=== PATIENT | male | born 1980 | race Two or more races ===

== ENCOUNTER 2024-09-28 09:54 | Emergency (ER) | payer MEDICAID, OTHER, SELFPAY ==
--- NOTE | ~2024-09-28 | XR_ITS ---
EXAMINATION: XR CHEST CLINICAL INFORMATION: cough COMPARISON: None available. TECHNIQUE: 2 views of the chest were obtained. FINDINGS: The cardiac, hilar, and mediastinal contours are normal. The lungs are clear bilaterally. There is no pneumothorax or pleural effusion. There is no focal osseous or soft tissue abnormality. XR/XR chest 2V IMPRESSION: No active pulmonary disease. Electronically signed by: Frandy Fleming MD 09/28/2024 12:13 PM [facility]
[2024-09-28 10:53] VITALS: BP 128/92; PULSE 94; RESP 16; TEMP 36.4; O2SAT 98; BMI 29.7
[2024-09-28 11:51] LABS: Influenza A PCR POSITIVE (Negative); Influenza B PCR NEGATIVE (Negative); Resp Syncy Virus RNA Qual PCR NEGATIVE (Negative); SARS COV2 PCR INHOUSE NEGATIVE (Negative)
--- NOTE | 2024-09-28 15:08 | ED_ITS ---
HPI - General Adult General Chief complaint: Upper Respiratory Symptoms Stated complaint: wheezing cough Time Seen by Provider: 09/28/24 15:06 Source: patient and aerial photograph interpreter (all interactions with this patient were facilitated with an [facility] [place] aerial photograph interpreter[place] Mode of arrival: ambulatory Limitations: language barrier (all interactions with this patient were facilitated with an [facility] [place] aerial photograph interpreter[place] History of Present Illness ED Provider: Deidre Encinas PA-C HPI narrative: Patient is a 44 year old assigned male at with a medical history of asthma presenting to the emergency department today with a cough and shortness of breath. Patient states that over the last 5 days he has had a cough and intermittent shortness of breath. Patient denies any dizziness, lightheadedness, abdominal pain, nausea, vomiting, fever, chills, blurry vision, double vision, loss of vision, chest pain, back pain, night sweats, pain with urination, increased urinary frequency, increased urinary urgency, blood in his urine or stool, syncope or a near syncopal episode, recent trauma or falls, bowel incontinence, bladder incontinence, or any other complaints at this time. Onset (ago): day(s) (5) Relieving factors: none Exacerbating factors: none Associated symptoms: cough and shortness of breath Treatments prior to arrival: none Related Data Previous Rx's ?Medication ?Instructions ?Recorded benzonatate 100 mg capsule 100 mg PO BID PRN cough 7 days #14 09/28/24 caps prednisone 20 mg tablet See Rx Instructions .Route 09/28/24 .COMPLEX 12 days #26 tabs Allergies Allergy/AdvReac Type Severity Reaction Status Date / Time No Known Allergies Allergy Verified 09/28/24 10:53 Review of Systems Constitutional: Constitutional: Reports no additional constitutional complaints, Denies chills, Denies fever(s) and Denies night sweats Eyes: Eyes: Reports no additional eye complaints, Denies blurry vision, Denies change in vision, Denies diplopia, Denies eye discharge, Denies loss of vision and Denies eye pain ENT: Denies dizziness Cardiovascular: Cardiovascular: Reports no additional cardiovascular complaints, Denies chest pain, Denies lightheadedness, Denies Loss of Consciousness and Reports dyspnea Respiratory: Respiratory: Reports no additional respiratory complaints, Reports cough and Reports dyspnea Gastrointestinal: Gastrointestinal: Reports no additional gastrointestinal complaints, Denies abdominal pain, Denies melena, Denies hematochezia, Denies change in bowel habits and Denies change in stool character Genitourinary: Genitourinary: Reports no additional male genitourinary complaints, Denies hematuria, Denies oliguria, Denies difficulty urinating, Denies dysuria, Denies urinary frequency, Denies urinary hesitancy, Denies urinary incontinence and Denies urinary urgency Musculoskeletal: Musculoskeletal: Reports no additional musculoskeletal complaints, Denies numbness and Denies tingling Neurologic: Denies dizziness, Denies loss of vision, Denies numbness and Denies tingling Psychiatric: Psychiatric: Reports no additional psychiatric complaints Endocrine: Endocrine: Reports no additional endocrine complaints Hematologic/Lymphatic: Hematologic/Lymphatic: Reports no additional hematologic/lymphatic complaints Allergic/Immunologic: Allergic/Immunologic: Reports no additional allergic/immunologic complaints PMFSH Past Medical History Attestation statement: The following information was validated with the patient. Source: old records reviewed and nursing notes reviewed Social History Social History Advance Directives: No Advance Directives Information Provided: No Do you have a plan to hurt others: No Plan Physical Exam ED Vital Signs: Vital Signs - 24 hr 09/28/24 10:53 Temperature 97.6 F Pulse Rate 94 Respiratory Rate 16 Blood Pressure 128/92 H Pulse Oximetry 98 Oxygen Delivery Method Room Air BMI result Body Mass Index 29.7 Const General: cooperative, no acute distress, alert and awake Nutritional Appearance: well nourished Orientation/consciousness: patient oriented x3 Limitations: no limitations [facility] Head: Yes normal to inspection and Yes atraumatic Ears: hearing grossly normal bilaterally and external ears normal General nose exam: Normal external nose present, no nasal discharge noted and no epistaxis Face and sinus: Yes normal facial exam, No abrasion and No laceration Mouth: Normal oral and palatal mucosa present, no drooling and no muffled voice Eyes General: appearance normal, both eyes and all related structures Periorbital: periorbital findings normal Eyelids: Yes eyelids normal Conjunctivae: conjunctivae normal Pupils: Equal, round and reactive pupils present EOM: EOMs intact bilaterally Neck Neck: Yes normal visual inspection, Yes full ROM and Yes no lymphadenopathy Chest Chest palpation & inspection: normal inspection of the chest Resp Effort & Inspection: normal respiratory effort and able to speak in complete sentences GI Inspection: Yes normal to inspection Neuro General: patient oriented x3 and moves all extremities Cranial nerves: Yes Equal, round and reactive pupils present Cognition (Neuro): normal cognition Extrem General: Yes normal to inspection, Yes full ROM and Yes capillary refill normal Psych Appearance: grossly normal Mental Status: mental status grossly normal Affect: normal affect Attitude: cooperative Thought process: Normal thought process present Thought content: Normal thought content present Insight: Good insight present (Psych) Medical Decision Making Medical Decision Making [facility] Narrative: Patient is a 44 year old assigned male at with a history of asthma presenting to the emergency department today with a cough and shortness of breath. Patient's physical exam was unremarkable. Patient was non-toxic appearing. Patient's chest x-ray showed no acute process. Patient's influenza t est was positive. I explained my physical exam findings as well as all test results to the patient. I answered all questions asked by the patient. I stressed the importance of the patient taking his medication as directed (either prescribed or as the over the counter packaging recommends). I stressed the importance of the patient following up with his primary care provider. I stressed the importance of the patient returning to the emergency department immediately if his symptoms were to worsen or if he were to develop any dizziness, shortness of breath, difficulty breathing, chest pain, blurry vision, loss of vision, nausea, vomiting, abdominal pain, fever, chills, back pain, or any other complaints. Patient verbalized agreement and understanding with this treatment plan and discharge. Differential Diagnosis Differential Diagnoses: The differential diagnosis associated with the presentation includes COVID-19 Influenza RSV Viral illness Cough Admission/Observation Consideration of admission/observation: Escalation of care including admission/observation considered Patient would have been admitted to the hospital had his work up had any findings where hospital admission was appropriate and his clinical presentation warranted hospital admission. Lab Data [facility] Lab Attestation statement: I reviewed the patient's lab results. My interpretation of these results are in the [facility] Rationale portion of this note. Labs: Lab Results 09/28/24 Range/Units 11:06 Influenza Type A (PCR) POSITIVE A (Negative) Influenza Type B (PCR) NEGATIVE (Negative) RSV RNA Qual (PCR) NEGATIVE (Negative) SARS-CoV-2 RNA (RT-PCR) NEGATIVE (Negative) Independent Interpretation I performed an independent interpretation of an: Plain X-Ray Interpretation: My interpretation is in agreement with the radiologist's impression of this imaging study. EXAMINATION: XR CHEST CLINICAL INFORMATION: cough COMPARISON: None available. TECHNIQUE: 2 views of the chest were obtained. FINDINGS: The cardiac, hilar, and mediastinal contours are normal. The lungs are clear bilaterally. There is no pneumothorax or pleural effusion. There is no focal osseous or soft tissue abnormality. XR/XR chest 2V IMPRESSION: No active pulmonary disease. Electronically signed by: Frandy Fleming MD 09/28/2024 12:13 PM [facility] Dictated By: Frandy Fleming MD Signed By: Electronically signed by Frandy Fleming MD 09/28/24 1213 Radiology Impression Discussion of test interpretation with radiology: I have reviewed the radiologist's reading. Discharge Plan Discharge Clinical Impression: Influenza Patient Disposition: Home, Self-Care Instructions: Influenza (DC) Additional Instructions: Follow up with your primary care provider. Return to the emergency department immediately if your symptoms worsen or if you develop any dizziness, shortness of breath, difficulty breathing, chest pain, blurry vision, loss of vision, nausea, vomiting, abdominal pain, fever, chills, back pain, or any other complaints. Prescriptions: New benzonatate 100 mg capsule 100 mg PO BID PRN (Reason: cough) 7 Days Qty: 14 0RF prednisone 20 mg tablet See Rx Instructions .ROUTE .COMPLEX 12 Days Qty: 26 0RF Rx Instructions: 20 mg orally, Take 3 tablets for 5 days THEN; Take 2 tablets for 4 days THEN; Take 1 tablet for 3 days Referrals[place] [facility] [place] [Provider Group] (Call to establish and follow up with a primary care provider. If you already have a primary care provider, please follow up with them.) [facility] [Provider Group] (Call to establish and follow up with a primary care provider. If you already have a primary care provider, please follow up with them.) [facility] [place] [facility] [Provider Group] (Call to establish and follow up with a primary care provider. If you already have a primary care provider, please f ollow up with them.) [facility] [place] [facility] Talon Littlejohn [Provider Group] (Call to establish and follow up with a primary care provider. If you already have a primary care provider, please follow up with them.) Discharge Date/Time: 09/28/24 15:23 Print Language: Serbian
--- NOTE | 2024-09-28 15:23 | PC.NURSE ---
discharged by provider
--- OUTSIDE RECORDS SUMMARY | 2024-09-28 19:22 | XMS_ITS | Encounter Summary ---
Author Organization [facility] Address [address] [place] [address] Care Team Providers Care Hydrometallurgical Engineer Name Role Phone Valentín Russo Unavailable [phone] Encounter Details Date Type Department Care Team (Late Contact Info) Description 08/03/2024 Telephone [facility] [address] [place] [address] Tala Richmond Social History Tobacco Use Types Packs/Day Years Used Date Smoking Tobacco: Some Days Cigarettes Passive Smoke Exposure: Current Smokeless Tobacco: Never Alcohol Use Standard Drinks/Week Comments Defer 0 (1 standard drink = 0.6 oz pur e alcohol) Sex and Gender Information Value Date Recorded Sex Assigned at Male 07/23/2024 10:26 AM EST Legal Sex Male 10:24 AM EST Gender Identity Male 07/23/2024 10:26 AM EST Sexual Orientation Choose not to disclose 2023 10:26 AM EST documented as of this encounter Plan of Treatment Upcoming Encounters Date Type Department Care Team (Late st Contact Info) Description 10/07/2024 3:00 PM EST Office Visit [facility] [address] [place] [address] Valentín Russo [address] [place] [address] documented as of this encounter Visit Diagnoses Not on filedocumented in this encounter Care Teams Hydrometallurgical Engineer Relationship Specialty Start Date End Date Valentín Russo [address] [place] [address] Resident Dental Donor Relations Manager 08/03/24 documented as of this encounter
--- OUTSIDE RECORDS SUMMARY | 2024-09-28 19:22 | XMS_ITS | Clinical Summary ---
Author Organization [employer] Address [address] [place] [address] Care Team Providers Care Refractory Worker Name Role Phone Karan Valentín Unavailable [phone] Allergies No known active allergies Medications No known medications Encounters Date Type Department Care Team Description 09/01/2024 10:30 AM EST Office Visit [facility] [address] [place] [address] Valentín Russo 08/14/2024 8:00 AM EST Office Visit [facility] [address] [place] [address] Urbano Salas Dental calculus (Primary Dx) 08/03/2024 Telephone [facility] [address] [place] [address] Tala Richmond 08/03/2024 Telephone [facility] [address] [place] [address] Tala Richmond 07/29/2024 8:00 AM EST Office Visit [facility] [address] [place] [address] Valentín Russo 07/23/2024 2:00 PM EST Office Visit [facility] [address] [place] [address] Tala Richmond Dental calculus (Primary Dx) from Last 3 Months Social History Tobacco Use Types Packs/Day Years Used Date Smoking Tobacco: Never Passive Smoke Exposure: Current Smokeless Tobacco: Never Tobacco Cessation:Counseling Given: Not Answered Alcohol Use Standard Drinks/Week Comments Not Asked 0 (1 standard drink = 0.6 oz pur e alcohol) Sex and Gender Information Value Date Recorded Sex Assigned at Male 07/23/2024 10:26 AM EST Legal Sex Male 10:24 AM EST Gender Identity Male 07/23/2024 10:26 AM EST Sexual Orientation Choose not to disclose 2023 10:26 AM EST Last Filed Vital Signs Vital Sign Reading Time Taken Comments Blood Pressure 130/70 08/14/2024 8:17 AM EST Pulse 70 08/14/2024 8:17 AM EST Temperature - - Respiratory Rate - - Oxygen Saturation - - Inhaled Oxygen Concentration - - Weight - - Height - - Body Mass Index - - Plan of Treatment Upcoming Encounters Date Type Department Care Team ([facility] st Contact Info) Description 10/07/2024 3:00 PM EST Office Visit [facility] [address] [place] [address] Valentín Russo [address] [place] [address] Health Maintenance Due Date Last Done Comments CT Colonography 1979 Colonoscopy 1979 Colorectal Cancer Screening 1979 Depression Screening 1979 FIT DNA/Cologuard 1979 FIT 1979 FOBT 1979 HIV Screening 1979 Lipid Panel 1979 SDOH Screening 1979 Sigmoidoscopy 1979 Alcohol/Substance Use Screening 1991 Family Planning (PISQ) 1994 Hepatitis C Screening 1997 DTaP/Tdap/Td Vaccines (1 - Tdap) 1998 Hepatitis B Vaccines (1 of 3 - 19+ 3-dose series) 1998 COVID-19 Vaccine ( - 2023-2 5 season) 2024 Influenza Vaccine (#1) 2024 Dental Prophylaxis 02/13/2025 08/14/2024 Dental Oral Exam 03/02/2025 09/01/2024 Dental X-Ray: Bitewings 08/15/2025 08/14/2024 Tobacco Screening 09/01/2025 09/01/2024 Dental X-Ray: Full Mouth 08/15/2027 08/14/2024 Zoster Vaccines (1 of 2) 2029 RSV Patients and Pa tients Aged 60 years or older (1 - 1-dose 75+ series) 2054 HIB Vaccines Aged Out No longer eligi ble based on patient's age to complete this topic HPV Vaccines Aged Out No longer eligi ble based on patient's age to complete this topic Hepatitis A Vaccines Aged Out No long er eligible based on patient's age to complete this topic IPV Vaccines Aged Out No longer eligi ble based on patient's age to complete this topic Meningococcal Vaccine Aged Out No brandon aj eligible based on patient's age to complete this topic Pneumococcal Vaccine: Pediat rics (0 to 5 Years) and At-Risk Patients (6 to 64 Years) Aged Out No longer eligi ble based on patient's age to complete this topic RSV under 20 months Aged Out No longe r eligible based on patient's age to complete this topic Rotavirus Vaccines Aged Out No longer eligible based on patient's age to complete this topic Procedures Procedure Name Priority Date/Time Associated Diagnosis Comments COMPREHENSIVE ORAL EVALUATION - NEW OR ESTABLISHED PATIENT Routine 09/01/2024 10:30 AM EST ADJUNCTIVE GENERAL SERVICES - PROFESSIONAL VISITS - CASE PRESENTATION, SUBSEQUENT TO DETAILED AND EXTENSIVE TREATMENT PLANNING Routine 08/14/2024 8:00 AM EST ORAL HYGIENE INSTRUCTIONS Routine 2023 8:00 AM EST DIAGNOSTIC - DIAGNOSTIC IMAGING - INTRAORAL - COMPREHENSIVE SERIES OF RADIOGRAPHIC IMAGES Routine 08/14/2024 8:00 AM EST PROPHYLAXIS - ADULT Routine 08/14/2024 8 :00 AM EST 26 EXTRACTION, ERUPTED TOOTH OR EXPOSED ROOT (ELEVATION AND/OR FORCEPS REMOVAL) Routine 07/29/2024 8:00 AM EST 24 EXTRACTION, ERUPTED TOOTH OR EXPOSED ROOT (ELEVATION AND/OR FORCEPS REMOVAL) Routine 07/29/2024 8:00 AM EST 23 EXTRACTION, ERUPTED TOOTH OR EXPOSED ROOT (ELEVATION AND/OR FORCEPS REMOVAL) Routine 07/29/2024 8:00 AM EST DIAGNOSTIC - TESTS AND EXAMINATIONS - CARIES RISK ASSESSMENT AND DOCUMENTATION, WITH A FINDING OF HIGH RISK Routine 07/23/2024 2:00 PM EST 23,24,25,26 LIMITED ORAL EVALUATION - PROBLEM FOCUSED Routine 07/23/2024 2:00 PM EST ADJUNCTIVE GENERAL SERVICES - PROFESSIONAL VISITS - CASE PRESENTATION, SUBSEQUENT TO DETAILED AND EXTENSIVE TREATMENT PLANNING Routine 07/23/2024 2:00 PM EST INTRAORAL - PERIAPICAL EACH ADDITIONAL RADIOGRAPHIC IMAGE Routine 07/23/2024 2:00 PM EST INTRAORAL - PERIAPICAL EACH ADDITIONAL RADIOGRAPHIC IMAGE Routine 07/23/2024 2:00 PM EST INTRAORAL - PERIAPICAL FIRST RADIOGRAPHIC IMAGE Routine 07/23/2024 2:00 PM EST from Last 3 Months [facility] ADULT [facility]ENT[facility] - HSN FULL (MEDICAID) Care Teams Refractory Worker Relationship Specialty Start Date End Date Valentín Russo [address] [place] [address] [place] RUIZ [phone] Resident Dental Real Estate Leasing Manager 08/03/24
--- OUTSIDE RECORDS SUMMARY | 2024-09-28 19:22 | XMS_ITS | Encounter Summary ---
Author Organization [employer] Address [address] [place] [address] Care Team Providers Care Business Management Manager Name Role Phone Valentín Russo Unavailable [phone] Reason for Visit * Reason Comments Dental Exam Encounter Details Date Type Department Care Team ([facility] st Contact Info) Description 09/01/2024 10:30 AM EST Office Visit [facility] [address] [place] [address] Valenítn Russo [address] [place] [address] Social History Tobacco Use Types Packs/Day Years [...] AM EST documented as of this encounter Progress Notes * Valentín Russo - 09/01/2024 10:30 AM EST Dental procedures in this visit [id number] - COMPREHENSIVE ORAL EVALUATION - NEW OR ESTABLISHED PATIENT (Completed) Service provider: Valentín Russo Billing provider: Chris Martinez DMD Patient ID: Alysa Ibrahim is a 44 y.o. male. Time Out: Date: 09/01/2024 Location: [facility] Tooth: Maxilla and Mandible Procedure: Exam Verified the above with patient, accounting administrative assistant, and provider. Confirmed via patient's chart, intraorally and by radiographs. Fishing Captain: not applicable 44 y.o. year old male patient presents to clinic for a Comprehensive exam completed by Dr. Ruiz CONSENT FORM INITIALED & SIGNED BY THE PATIENT AND COUNTERSIGNED BY Dr. Valentín Russo Chief Complaint: I'm here for my exam [place] PASS: Pain: no Duration: N/A Scale of pain from 1 - 10: N/A Aggravating factors: N/A Pain radiating: N/A Postural variation: N/A Medical history: Reviewed in EHR, pt. reports no changes in medical history Medical consult/Medical clearance: No Vital signs: BP - 125/84 Allergies: reviewed in EHR, NKDA Medications: Reviewed in EHR ASA- 2 Habits Bruxism: No Smoking: no Drinking: yes Brushin x daily Flossin x day Last dental visit: 07/29/24 Cancer screening Extra-oral - wnl Intraoral - wnl Extra-oral examination TMJ Deviation - no Clicking - no Tenderness - no Facial symmetry - Symmetric Cheeks - wnl Lymph nodes - wnl Intraoral examination Soft tissues - wnl Palate - wnl Tongue - wnl Buccal mucosa - wnl Floor of mouth - wnl Vestibules - wnl Lips - wnl Glands - wnl Duct area - wnl Oropharynx - wnl Gingiva Color - red Contour - Blunt Recession - Yes Consistency - Thick Texture - smooth Bleeding on probing - Yes Oral hygiene - Poor Occlusion Overbite (mm): N/A mm Overjet (mm): N/A mm Diastema: no Right Molar Occlusion: cl3 Left Molar Occlusion: cl3 Right Canine Occlusion: cl3 Left Canine Occlusion: cl3 Midline: no Anterior/Posterior crossbite: posterior: bilateral Arches: narrow Wear Facets: no Radiographs Full mouth series taken on: yes Quality are of diagnostic value and appropriate for radiographic analysis: yes X-ray retake: no RADIOGRAPHIC FINDINGS Radiolucency: no Thickened PDL: yes Increased Lamina Dura: no Root Resorption Internal/External: no Abnormal Root formation: no Horizontal Bone Resorption: yes Vertical Bone Resorption: yes Other Bone Pathosis: no Periodontal exam Periodontal diagnosis: Periodontitis stage 4 grade c PSR or full pocket depths recorded: yes Hard tissue exam Missing - yes Decayed - yes Gingiva - inflamed Calculus - yes Fractured - no Mobility - yes Treatment discussion Findings, risks, benefits and alternatives discussed with pt. Reviewed radiographs with pt. Pointedout areas of radiographic calculus. Discussed sequelae of bacteria on gingiva and underlying bone. Recommended prophy, OHI and SRP. Advised increased frequency of brushing and flossing. 4-6 week perio reevaluation to determine if further treatment indicated. Caries planned for uatsdin. Treatment sequencing explained to pt. Pt. understands and receptive to treatment. Treatment plan: Phase 1 - EXT Phase 2 - SRP Phase 3 - PROSTHO Phase 4 - RECALL Referral to specialist outside of the clinical site: NO Patient agrees with treatment plan Patient satisfied and dismissed in stable condition NV: EXT Provider: - Dr. Valentín Russo Dental Credit Collections Manager: Stephanie Weiss Supervising Dentist: Dr. Martinez Note: pt was informed that additional teeth might be extracted in the future. * Chris Martinez DMD - 09/01/2024 10:30 AM EST I have reviewed the documentation and dental procedures made by the rendering provider, Valentín Russo DDS, and approve their chart entries for this visit. Chris Martinez DMD documented in this encounter Plan of Treatment Upcoming Encounters Date Type Department Care Team (Late st Contact Info) Description 10/07/2024 3:00 PM EST Office Visit [facility] [address] [place] [address] Valentín Russo [address] [place] [address] Scheduled Orders Name Type Priority Associated Diagnoses Orde r Schedule UR UR PERIODONTAL SCALING AND ROOT PLANING - 4 OR MORE TEETH PER QUADRANT Dental Routine [address] arting 09/01/2024 UL UL PERIODONTAL SCALING AND ROOT PLANING - 4 OR MORE TEETH PER QUADRANT Dental Routine [address] arting 09/01/2024 LR LR PERIODONTAL SCALING AND ROOT PLANING - 1 TO 3 TEETH PER QUADRANT Dental Routine [address] arting 09/01/2024 LL LL PERIODONTAL SCALING AND ROOT PLANING - 1 TO 3 TEETH PER QUADRANT Dental Routine [address] arting 09/01/2024 19 19 EXTRACTION, ERUPTED TOOTH OR EXPOSED ROOT (ELEVATION AND/OR FORCEPS REMOVAL) Dental Routine 1 Occurrences s tarting 09/01/2024 27 27 EXTRACTION, ERUPTED TOOTH OR EXPOSED ROOT (ELEVATION AND/OR FORCEPS REMOVAL) Dental Routine 1 Occurrences s tarting 09/01/2024 30 30 EXTRACTION, ERUPTED TOOTH OR EXPOSED ROOT (ELEVATION AND/OR FORCEPS REMOVAL) Dental Routine 1 Occurrences s tarting 09/01/2024 32 32 EXTRACTION, ERUPTED TOOTH OR EXPOSED ROOT (ELEVATION AND/OR FORCEPS REMOVAL) Dental Routine 1 Occurrences s tarting 09/01/2024 2 2 EXTRACTION, ERUPTED TOOTH OR EXPOSED ROOT (ELEVATION AND/OR FORCEPS REMOVAL) Dental Routine 1 Occurrences s tarting 09/01/2024 documented as of this encounter Procedures Procedure Name Priority Date/Time Associated Diagnosis Comments COMPREHENSIVE ORAL EVALUATION - NEW OR ESTABLISHED PATIENT Routine 09/01/2024 10:30 AM EST documented in this encounter Visit Diagnoses Not on filedocumented in this encounter Care Teams Business Management Manager Relationship Specialty Start Date End Date Valentín Russo [address] [place] [id number] Resident Dental Log Hauler 08/03/24 documented as of this encounter
== END 2024-09-28 15:23 | disposition home or self-care (01) ==
PROVIDERS: Emergency Provider Emergency Medicine
DX: J10.1 Influenza due to other identified influenza virus with other respiratory manifestations (principal); R06.02 Shortness of breath; J45.909 Unspecified asthma, uncomplicated; Z03.818 Encounter for observation for suspected exposure to other biological agents ruled out
CPT/HCPCS: 0241U; 71046; 99281; 99283

== ENCOUNTER → 2024-09-28 11:25 | Outpatient (BNV) | payer SELFPAY | PROVIDERS: Visit Provider Radiology Diagnostic Radiology | DX: R05.9 Cough, unspecified (principal) | CPT/HCPCS: 71046 ==